=== PATIENT | female | born 1985 | race Caucasian/White ===

== ENCOUNTER 2016-09-15 09:11 | Outpatient (CLI) | payer OTHER ==
[~2016-09-15 09:11] MED LIST: ACYCLOVIR200 MG PO; FLAGYL500 MG PO; TUMS500 MG PO
== END 2016-09-15 23:00 ==
LOC: LAB SRH 09:11
DX: R63.4 Abnormal weight loss (principal); R53.83 Other fatigue
CPT/HCPCS: 90074; 90100; 93140; 95059; 95150